=== PATIENT | male | born 1995 | race Caucasian/White ===

== ENCOUNTER 2020-10-01 02:04 | Emergency (ER) | payer OTHER ==
[~2020-10-01] VITALS: Ht 182.9 cm; Wt 68.0 kg
[2020-10-01 02:40] VITALS: BP 138/80
[2020-10-01] MEDS ORDERED: VOLTAREN75 MG PO (03:10)
== END 2020-10-01 03:33 | disposition home or self-care (01) | DRG 563 ==
LOC: ED 02:04
DX: S29.011A Strain of muscle and tendon of front wall of thorax, initial encounter (principal); X50.0XXA Overexertion from strenuous movement or load, initial encounter; Y92.89 Other specified places as the place of occurrence of the external cause; Y99.0 Civilian activity done for income or pay